=== PATIENT | female | born 1995 | race African-American/Black ===

== ENCOUNTER 2018-10-20 21:15 | Emergency (ER) | payer OTHER ==
[2018-10-20] MEDS ORDERED: IBUPROFEN 600 MG TAB PO ONE (21:40)
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
--- NOTE | 2018-10-20 22:32 | RADIOLOGY IMAGING REPORT ---
FACILITY: [facility] [place] PATIENT NAME: Berna Lewis : 1995 MR: [id number] V: [id number] EXAM DATE: ORDERING PHYSICIAN: KENDALL BARROS TECHNOLOGIST: Location: [facility] - [place] Patient: Berna Lewis : 1995 Visit/Account:[id number] Date of Sevice: 10/20/2018 WRIST: Indication: Injury. Technique: 4 views were obtained. Comparison: None available. Findings: There is no evidence of fracture, dislocation, or other acute deformity. There is uniform m ineralization of the skeletal structures. No periarticular soft tissue abnormality is identified. IMPRESSION: Negative left wrist. Report Dictated By: Ish Kidd MD at 10/20/2018 10:25 PM Report E-Signed By: Ish Kidd MD at 10/20/2018 10:27 PM WSN:[id number]
--- NOTE | 2018-10-20 22:34 | RADIOLOGY IMAGING REPORT ---
FACILITY: [facility] - [place] PATIENT NAME: Berna Lewis : 1995 MR: [id number] V: [id number] EXAM DATE: ORDERING PHYSICIAN: KENDALL BARROS TECHNOLOGIST: Location: [facility] Patient: Berna Lewis : 1995 Visit/Account:[id number] Date of Sevice: 10/20/2018 KNEE: Indication: Injury. Technique: 3 views of the knee were obtained. Comparison: None available. Findings: There is no evidence of fracture, dislocation, or other acute deformity. There is normal mi neralization of the skeletal structures. The periarticular soft tissues appear unremarkable. IMPRESSION: Negative left knee. Report Dictated By: Ish Kidd MD at 10/20/2018 10:30 PM Report E-Signed By: Ish Kidd MD at 10/20/2018 10:31 PM WSN:[id number]
[2018-10-20] MEDS ORDERED: APAP/HYDROCODONE 325/5 TAB PO ONE (22:45)
[2018-10-20] MEDS ORDERED: ACET/HYDROC 5/325MG TH ER ONLY 2 TAB/BOTTLE PO ONE (22:45)
--- NOTE | 2018-10-20 22:46 | RADIOLOGY IMAGING REPORT ---
FACILITY: [facility] PATIENT NAME: Berna Lewis : 1995 MR: [id number] V: [id number] EXAM DATE: ORDERING PHYSICIAN: KENDALL BARROS TECHNOLOGIST: Location: [facility] - [place] Patient: Berna Lewis : 1995 Visit/Account:[id number] Date of Sevice: 10/20/2018 LEFT HAND: Indication: Injury. Technique: 3 views were obtained. Positioning was suboptimal on multiple views. Comparison: None available. Findings: There is no evidence of fracture, dislocation, or other acute deformity. There is uniform m ineralization of the skeletal structures. There are no signs of soft tissue deformity or calcificatio n. IMPRESSION: Limited, but unremarkable study. Report Dictated By: Ish Kidd MD at 10/20/2018 10:39 PM Report E-Signed By: Ihs Kidd MD at 10/20/2018 10:41 PM WSN:[id number]
[2018-10-20 23:00] VITALS: BP 104/48
== END 2018-10-20 23:22 | disposition home or self-care (01) ==
LOC: ER 21:24
DX: S63.502A Unspecified sprain of left wrist, initial encounter (principal); S50.812A Abrasion of left forearm, initial encounter; V67.5XXA Driver of heavy transport vehicle injured in collision with fixed or stationary object in traffic accident, initial encounter
CPT/HCPCS: 99284